=== PATIENT | female | born 1985 | race Caucasian/White ===

== ENCOUNTER → 2016-06-15 | Outpatient (CLI) | payer BC ==
[~2016-06-15] MED LIST: ALBU17IN INH; CEPH25SS PO; CHERSYP3 PO; FERR325T69 PO; MOTR200T40 PO; PREN29TA4 PO; TYLE325T5 PO
[2016-06-15 19:01] LABS: MEAN CORPUSCULAR HEMOGLOBIN 29.7 pg (27.0-33.0); MEAN CORPUSCULAR VOLUME 90.1 fl (80.0-96.0); RED CELL DISTRIBUTION WIDTH 12.7 % (11.5-14.5); WHITE BLOOD COUNT 12.3 K/mm3 (4.0-10.0)
== END ==
LOC: M SMT 12:47
PROVIDERS: ATTEND Advanced Practice Midwife
DX: Z34.82 Encounter for supervision of other normal pregnancy, second trimester (principal); Z36 Encounter for antenatal screening of mother; Z3A.00 Weeks of gestation of pregnancy not specified

== ENCOUNTER → 2016-09-14 | Outpatient (REF) | payer BC ==
[~2016-09-14] MED LIST changes: -MOTR200T40 PO; +MOTR200T44 PO
== END ==
LOC: M LAB REF 17:04
PROVIDERS: ATTEND Advanced Practice Midwife
DX: Z36 Encounter for antenatal screening of mother (principal); Z3A.00 Weeks of gestation of pregnancy not specified

== ENCOUNTER 2016-10-13 22:20 | Outpatient (CLI) | payer BC ==
[~2016-10-13] VITALS: Ht 157.5 cm; Wt 75.0 kg
[2016-10-13 22:30] VITALS: BP 116/56
[2016-10-14] MEDS ORDERED: PRENTAB9 PO (00:13)
== END 2016-10-13 23:40 | disposition home or self-care (01) ==
LOC: M LDO 22:20
PROVIDERS: ATTEND Advanced Practice Midwife
DX: O47.1 False labor at or after 37 completed weeks of gestation (principal); Z3A.40 40 weeks gestation of pregnancy

== ENCOUNTER 2016-10-15 10:16 | Inpatient (IN) | payer BC ==
[2016-10-15] VITALS (13 sets, daily range): BP systolic 92–127; BP diastolic 53–74
[~2016-10-15] VITALS: Ht 157.5 cm; Wt 72.0 kg
[~2016-10-15 10:16] MED LIST changes: +PRENTAB9 PO
[2016-10-15] MEDS ORDERED: LR 1,000 ML IV SCH (10:41)
[2016-10-15] MEDS ORDERED: OXYTOCIN DRIP 30 UNITS in APPROPRIATE DILUENT 1 EA IV SCH ×2 (10:45→19:35)
[2016-10-15 11:24] LABS: MEAN CORPUSCULAR HEMOGLOBIN 27.5 pg (27.0-33.0); MEAN CORPUSCULAR HGB CONC 32.4 g/dl (32.0-36.5); MEAN CORPUSCULAR VOLUME 84.9 fl (80.0-96.0); RED CELL DISTRIBUTION WIDTH 13.7 % (11.5-14.5); WHITE BLOOD COUNT 11.4 K/mm3 (4.0-10.0)
--- NOTE | 2016-10-15 12:43 | HPE ---
DATE OF ADMISSION: 10/15/2016 REASON FOR ADMISSION: Induction of labor for post dates. HISTORY OF PRESENT ILLNESS: This patient is a 30-year-old, 3, para 2, who presents at 41 weeks and zero days estimated gestational age, by her last menstrual period, confirmed by a first trimester ultrasound, here for induction of labor. Her course has been unremarkable. She initiated care in the first trimester and has been appropriate throughout. PAST MEDICAL HISTORY: None. PAST SURGICAL HISTORY: She has had bladder surgery for removal of a polyp. PAST OBSTETRICAL HISTORY: She is a 3, para 2. She has proven to 9 pounds 10 ounces. She has had two term vaginal deliveries that were uncomplicated. Her medication include: - vitamins She has NO KNOWN DRUG ALLERGIES. SOCIAL HISTORY: Denies any alcohol, tobacco, or drug use during the . Lives with her and her two sons. PHYSICAL EXAMINATION: Vital signs are stable. She is afebrile. She is has a category 1 rate tracing. No contractions on tocometer. Her general appearance is well-appearing, in no acute distress. Her lungs are clear to auscultation bilaterally. Cardiovascular: Heart regular rate and rhythm. Abdomen is soft, gravid. Estimated weight (EFW) 4000 grams. On cervical exam, she was 3 cm dilated, 80% effaced, -3 station. Her labs, her blood type is B positive, antibody screen negative. Rubella is immune. RPR is nonreactive. Hepatitis surface antigen is negative. HIV is negative. Hepatitis C is nonreactive. Chlamydia and gonorrhea screens are negative. She had a normal 1-hour Glucola. She is GBS negative. ASSESSMENT: 1. This patient is a 30-year-old 3, para 2, at 41 weeks zero days estimated gestational age, here for induction of labor. 2. Reassuring status with category 1 heart rate tracing. PLAN: 1. Admit to labor and delivery. Complete blood count (CBC), rapid plasma reagin (RPR), type and screen. 2. Patient has been thoroughly counseled in regards to induction of labor. I discussed medications as well as procedures performed in labor and delivery. She has also been verbally consented for emergency surgery, blood products, anesthesia and desires to proceed with admission. 3. We will initiate her induction of labor with pitocin augmentation.
[2016-10-15] MEDS ORDERED: FENTANYL 2MCG/ML ROPIVACAINE 0.2% IN 0.9% NACL 200ML IVBAG As Ordered ONE (18:03)
[2016-10-15] MEDS ORDERED: LACTATED RINGER'S 1000 ML IV PRN (18:36)
[2016-10-15] MEDS ORDERED: NALOXONE INJ 0.4 MG/1 ML VIAL (J2310) IV PRN (18:36)
[2016-10-15] MEDS ORDERED: ePHEDrine SULFATE 25 MG/5 ML(5MG/ML) SYRINGE IV PRN (18:36)
[2016-10-15] MEDS ORDERED: FENTANYL/ROPIVACAINE/NACL BAG 200 ML EPIDURAL SCH (18:36)
[2016-10-15] MEDS ORDERED: diphenhydrAMINE INJ 50MG/ML VIAL (J1200) IV PRN (18:36)
[2016-10-15] MEDS ORDERED: REFRIGERATOR IV KEYS XX PRN (18:36)
[2016-10-15] MEDS ORDERED: EPIDURAL/PCA KEYS XX PRN (18:36)
[2016-10-15] MEDS ORDERED: ONDANSETRON 4MG/2ML VIAL (J2405) IV PRN (18:36)
[2016-10-15] MEDS ORDERED: EPIDURAL COMMENT XX SCH (18:36)
[2016-10-15] MEDS ORDERED: DIBUCAINE 1% OINTMENT 30GM TOP PRN (19:45)
[2016-10-15] MEDS ORDERED: METHYLERGONOVINE MALEATE 0.2 MG TAB PO PRN (19:45)
[2016-10-15] MEDS ORDERED: MEASLES,MUMPS,RUBELLA VACCINE INJ (MMR-II) (90707) SC SCH (19:45)
[2016-10-15] MEDS ORDERED: ANUSOL HC CREAM 30GM TOP PRN (19:45)
[2016-10-15] MEDS ORDERED: MOM 30ML SUSPENSION UDC PO PRN (19:45)
[2016-10-15] MEDS ORDERED: IBUPROFEN 800 MG TAB PO PRN (19:45)
[2016-10-15] MEDS ORDERED: DOCUSATE SODIUM 100 MG CAP PO PRN (19:45)
[2016-10-15] MEDS ORDERED: RHOGAM 300 MCG (1500 IU) INJ (J2790) IM SCH (19:45)
--- NOTE | 2016-10-15 21:25 | DN ---
DATE: 10/15/2016 TIME OF : 1916 hours. GENDER: Female. SCORES: 8 and 9. WEIGHT 3710 grams or 8 pounds 3 ounces. LACERATIONS: None. ESTIMATED BLOOD LOSS: 300 mL. ANESTHESIA: Epidural. COUNTS: Five laparotomy sponges accounted for prior to and after delivery. DELIVERY NOTE: On 10/15/2016 at 1916 hours, Mrs. Ndiaye, a 30-year-old, 3, now para 3, had a spontaneous vaginal delivery of a liveborn female , scores of 8 and 9, weight 3710 grams or 8 pounds 3 ounces. Head was delivered OA over an intact peritoneum. There was a loose nuchal cord that was manually reduced, followed by delivery of right anterior shoulder, left posterior shoulder, and corpus. The infant was handed to the mother with good cry. Cord was then clamped times two and was cut by the father of the baby under my direction. Cord blood was obtained. The placenta was drained and delivered grossly intact. A premix bag of 500 mL of normal saline with 30 units of Pitocin was bolused, along with uterine massage until the uterus was firm. On inspection, cervix, vagina, and perineum were grossly intact and hemostatic. Mother and baby recovering in stable condition. The couple has decided to name their daughter Haley.
[2016-10-16 05:44] VITALS: BP 105/57
[2016-10-16] MEDS: PRENATAL VITAMIN TAB PO SCH (08:11)
[2016-10-16] MEDS: ACETAMINOPHEN 500 MG TAB PO PRN (08:36)
[2016-10-16 17:55] VITALS: BP 131/74
[2016-10-17] MEDS: ACETAMINOPHEN 500 MG TAB PO PRN (00:18)
[2016-10-17 05:29] VITALS: BP 107/61
[2016-10-17] MEDS: PRENATAL VITAMIN TAB PO SCH (08:00)
[2016-10-17] MEDS ORDERED: MOM30SS PO (08:35)
[2016-10-17] MEDS ORDERED: ACET50TA PO (08:35)
[2016-10-17] MEDS ORDERED: COLA100C3 PO (08:35)
[2016-10-17] MEDS ORDERED: IBUP-1114 PO (08:35)
== END 2016-10-17 09:44 | disposition home or self-care (01) | DRG 560 ==
LOC: M LDI 10:16 → M OBS 21:36
PROVIDERS: ADMIT Obstetrics & Gynecology; ATTEND Obstetrics & Gynecology
PROC: 10E0XZZ Delivery of Products of Conception, External Approach (ICD-10-PCS; principal; 2016-10-15)
PROC: 3E033VJ Introduction of Other Hormone into Peripheral Vein, Percutaneous Approach (ICD-10-PCS; 2016-10-15)
DX: O48.0 Post-term pregnancy (principal); O69.81X0 Labor and delivery complicated by cord around neck, without compression, not applicable or unspecified; Z3A.41 41 weeks gestation of pregnancy; Z37.0 Single live birth

== ENCOUNTER → 2017-02-21 | Outpatient (REF) | payer BC ==
[~2017-02-21] MED LIST changes: +ACET50TA PO; +COLA100C5 PO; +IBUP-1114 PO; +MOM30SS PO
== END ==
LOC: M LAB REF 17:43
PROVIDERS: ATTEND Advanced Practice Midwife
DX: Z12.4 Encounter for screening for malignant neoplasm of cervix (principal)

== ENCOUNTER → 2018-03-14 | Outpatient (REF) | payer BC ==
[2018-03-17 15:28] LABS: HPV HYBRID CAPTURE II Negative (Negative)
== END ==
LOC: M LAB REF 14:01
DX: Z12.4 Encounter for screening for malignant neoplasm of cervix (principal)
CPT/HCPCS: G0123

== ENCOUNTER → 2019-03-25 | Outpatient (REF) | payer BC ==
[~2019-03-25] MED LIST changes: -ACET50TA PO; +MAPA500T2 PO
[2019-03-28 08:07] LABS: HPV HYBRID CAPTURE II Negative (Negative)
== END ==
LOC: M LAB REF 10:35
PROVIDERS: ATTEND Specialist
DX: Z12.4 Encounter for screening for malignant neoplasm of cervix (principal)
CPT/HCPCS: 87624; G0123

== ENCOUNTER → 2020-04-28 | Outpatient (REF) | payer OTHER | LOC: M SFHCWAGY 16:54 | PROVIDERS: ATTEND Specialist | DX: Z01.419 Encounter for gynecological examination (general) (routine) without abnormal findings (principal) | CPT/HCPCS: 87624; G0123 ==

== ENCOUNTER → 2021-07-20 | Outpatient (REF) | payer BC | LOC: M SFHCWAGY 17:44 | PROVIDERS: ATTEND Specialist | DX: Z01.419 Encounter for gynecological examination (general) (routine) without abnormal findings (principal) ==

== ENCOUNTER → 2023-11-10 | Outpatient (REF) | payer BC ==
[2023-11-14 15:09] LABS: HPV APTIMA Negative (Negative)
== END ==
LOC: M SFHCWAGY 12:25
PROVIDERS: ATTEND Specialist
DX: Z01.419 Encounter for gynecological examination (general) (routine) without abnormal findings (principal); Z12.4 Encounter for screening for malignant neoplasm of cervix; Z77.9 Other contact with and (suspected) exposures hazardous to health

== ENCOUNTER → 2025-02-04 | Outpatient (REF) | payer BC ==
[2025-02-06 14:17] LABS: HPV APTIMA Not Detected (Not Detected)
== END ==
LOC: M PLALAB 02-03 16:23
PROVIDERS: ATTEND Specialist
DX: Z01.419 Encounter for gynecological examination (general) (routine) without abnormal findings (principal); R87.610 Atypical squamous cells of undetermined significance on cytologic smear of cervix (ASC-US)
CPT/HCPCS: 87624; G0123

== ENCOUNTER → 2025-02-21 | Outpatient (CLI) | payer BC | LOC: M WHC 12:03 | PROVIDERS: ATTEND Specialist | DX: Z12.31 Encounter for screening mammogram for malignant neoplasm of breast (principal); R92.333 Mammographic heterogeneous density, bilateral breasts ==